=== PATIENT | male | born 1965 | race Caucasian/White ===

== ENCOUNTER 2017-05-13 22:57 | Emergency (ER) | payer OTHER ==
[2017-05-14] MEDS ORDERED: DIPH/PERTUSS(ACELL)/TETANUS VAC/PF 0.5 ML SYR (>=10YO) IM ONE (01:38)
[2017-05-14] MEDS ORDERED: PREDNISONE 20 MG TABLET PO ONE (01:38)
[2017-05-14] MEDS ORDERED: IBUPROFEN 800 MG TABLET PO ONE (01:38)
[2017-05-14] MEDS ORDERED: HYDROCODONE/ACETAMINOPHEN 5-325 MG 6 TAB/DSPK PO PRN (01:39)
[2017-05-14] MEDS ORDERED: FAMOTIDINE 20 MG TABLET PO ONE (01:39)
[2017-05-14] MEDS ORDERED: METOPROLOL SUCCINATE 25 MG TAB.SR.24H PO ONE (01:39)
--- NOTE | 2017-05-14 01:44 | ER Document Report ---
ED General - General Chief Complaint: Insect Bite Stated Complaint: POSSIBLE INSECT STINGS Time Seen by Provider: 05/14/17 01:24 Mode of Arrival: Ambulatory Information source: Patient TRAVEL OUTSIDE OF THE [place] IN LAST 30 DAYS: No - HPI Notes: Patient is a pleasant 51-year-old white male presents emergency department with report that he was working outside when he was stung by yellow jackets from the left arm with about 1900 with reports of swelling through the arm and left lateral abdomen since. The patient denies any difficulty breathing or chest pain or oropharyngeal swelling or weakness. Patient states his last tetanus was perhaps 2010. The patient reports no fever, but does report a sensation of chills. Patient has a history of hypertension but has not taken his Toprol XL 25 mg tablet and over a year. He states he needs a refill of the Toprol. Past Medical History - General Information source: Patient - Social History Smoking Status: Never Smoker Chew tobacco use (# tins/day): No Frequency of alcohol use: Occasional Drug Abuse: None Lives with: Alone Family History: Reviewed & Not Pertinent Patient has suicidal ideation: No Patient has homicidal ideation: No Renal/ Medical History: Denies: Hx Peritoneal Dialysis Surgical Hx: Negative - Immunizations Hx Diphtheria, Pertussis, Tetanus Vaccination: No - not sure Review of Systems - Review of Systems Notes: REVIEW OF SYSTEMS: CONSTITUTIONAL : Denies fever, chills, or sweats. Denies recent illness. EENT: Denies eye, ear, throat, or mouth pain or symptoms. Denies nasal or sinus congestion or discharge. Denies throat, tongue, or mouth swelling or difficulty swallowing. CARDIOVASCULAR: Denies chest pain. Denies palpitations or racing or irregular heart beat. Denies ankle edema. RESPIRATORY: Denies cough, cold, or chest congestion. Denies shortness of breath, difficulty breathing, or wheezing. GASTROINTESTINAL: Denies abdominal pain or distention. Denies nausea, vomiting , or diarrhea. Denies blood in vomitus, stools, or per rectum. Denies black, tarry stools. Denies constipation. GENITOURINARY: Denies difficulty urinating, painful urination, burning, frequency, blood in urine, or discharge. MUSCULOSKELETAL: Denies back or neck pain or stiffness. Denies joint pain or swelling. SKIN: Denies sores. HEMATOLOGIC : Denies easy bruising or bleeding. LYMPHATIC: Denies swollen, enlarged glands. NEUROLOGICAL: Denies confusion or altered mental status. Denies passing out or loss of consciousness. Denies dizziness or lightheadedness. Denies headache. Denies weakness or paralysis or loss of use of either side. Denies problems with gait or speech. Denies sensory loss, numbness, or tingling. Denies seizures. PSYCHIATRIC: Denies anxiety or stress. Denies depression, suicidal ideation, or homicidal ideation. ALL OTHER SYSTEMS REVIEWED AND NEGATIVE. Dictation was performed using [employer] voice recognition software Physical Exam - Vital signs Vitals: Temp Pulse Resp BP Pulse Ox 98.2 F 111 H 20 157/104 H 97 05/13/17 23:02 05/13/17 23:02 05/13/17 23:02 05/13/17 23:02 05/13/17 23:02 - Notes Notes: PHYSICAL EXAMINATION: GENERAL: Well-appearing, well-nourished and in no acute distress. HEAD: Atraumatic, normocephalic. EYES: Pupils equal round and reactive to light, extraocular movements intact, sclera anicteric, conjunctiva are normal. ENT: Nares patent, oropharynx clear without exudates. Moist mucous membranes. NECK: Normal range of motion, supple without lymphadenopathy LUNGS: Breath sounds clear to auscultation bilaterally and equal. No wheezes rales or rhonchi. HEART: Regular rate and rhythm without murmurs ABDOMEN: Soft, nontender, nondistended abdomen. No guarding, no rebound. No masses appreciated. Musculoskeletal: Normal range of motion, no pitting or edema. No cyanosis. NEUROLOGICAL: Cranial nerves grossly intact. Normal speech, normal gait. Normal sensory, motor exams PSYCH: Normal mood, normal affect. SKIN: Localized allergic reaction response surrounding insect bites on the left upper extremity and one on the left lateral lower abdomen. No evidence for cellulitis. Distally the patient is neurovascularly intact. No evidence for abscess. No significant proximal erythema or adenopathy. Course - Re-evaluation Re-evalutation: 05/14/17 01:56 Patient given a tetanus, prednisone ibuprofen Pepcid Burnham and Toprol XL. Patient was counseled about the need to take his antihypertensive medication regularly. Patient shows no evidence for anaphylaxis or hypotension or systemic allergic response. - Vital Signs Vital signs: Temp Pulse Resp BP Pulse Ox 98.2 F 111 H 20 157/104 H 97 05/13/17 23:02 05/13/17 23:02 05/13/17 23:02 05/13/17 23:02 05/13/17 23:02 Discharge - Discharge Clinical Impression: Insect bite Qualifiers: Encounter type: initial encounter Qualified Code(s): W57.XXXA - Bitten or stung by nonvenomous insect and other nonvenomous arthropods, initial encounter Allergic reaction Qualifiers: Encounter type: initial encounter Qualified Code(s): T78.40XA - Allergy, unspecified, initial encounter Hypertension Qualifiers: Hypertension type: essential hypertension Qualified Code(s): I10 - Essential ( primary) hypertension Clinical Impression: (Ruled Out): 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 Take Benadryl up to 50 mg every 4 hours as needed for itching and swelling. Return to the ED in case of difficulty breathing or fever or severe pain. Prescriptions: Hydrocodone/Acetaminophen [Burnham 5-325 Tablet] 1 each PO Q4HP PRN #20 tablet PRN Reason: Metoprolol Succinate [Toprol Xl 25 mg Tab.sr] 25 mg PO DAILY #60 tab.sr.24h Prednisone [Deltasone 20 mg Tablet] 3 tab PO DAILY 3 Days Forms: Return to Work
[2017-05-14 02:05] VITALS: BP 141/96
== END 2017-05-14 02:10 | disposition home or self-care (01) ==
LOC: ER 22:57
DX: T63.461A Toxic effect of venom of wasps, accidental (unintentional), initial encounter (principal); M79.89 Other specified soft tissue disorders; R68.83 Chills (without fever); I10 Essential (primary) hypertension; T44.7X6A Underdosing of beta-adrenoreceptor antagonists, initial encounter; Z91.14 Patient's other noncompliance with medication regimen; Z23 Encounter for immunization
CPT/HCPCS: 99281; 90471; 90715; J7512